=== PATIENT | male | born 1960 | race Caucasian/White ===

== ENCOUNTER 2018-05-13 19:18 | Day surgery (SDC) | payer BC ==
[~2018-05-13] VITALS: Ht 162.6 cm; Wt 77.3 kg
[2018-05-13] MEDS ORDERED: ASPI81CH PO (19:28)
[2018-05-13] MEDS ORDERED: PRAV40TA2 (19:28)
[2018-05-13] MEDS ORDERED: GLUCAGON FOR INJ 1 MG VIAL (J1610) IV STA (19:46)
[2018-05-13] MEDS ORDERED: NS 1,000 ML IV SCH (19:46)
[2018-05-13 20:12] LABS: BASO % 0.5 % (0.0-1.0); EOS # 0.1 10^3/uL (0.0-0.50); EOS % 1.2 % (0.0-3.0); HEMATOCRIT 45.4 % (42.0-52.0); HEMOGLOBIN 15.4 g/dl (13.5-17.5); LYMPH # 1.8 10^3/uL (1.5-4.5); LYMPH % 29.4 % (24.0-44.0); MEAN CORPUSCULAR HEMOGLOBIN 31.7 pg (27.0-33.0); MEAN CORPUSCULAR HGB CONC 33.9 g/dl (32.0-36.5); MEAN CORPUSCULAR VOLUME 93.4 fl (80.0-96.0); MONO # 0.5 10^3/uL (0.0-0.8); MONO % 8.2 % (0.0-5.0); NEUTROPHILS # 3.6 10^3/uL (1.8-7.7); NEUTROPHILS % 60.4 % (36.0-66.0); PLATELET COUNT, AUTOMATED 215 10^3/uL (150-450); RED BLOOD COUNT 4.86 10^6/uL (4.30-6.10)
[2018-05-13 20:35] LABS: CALCIUM LEVEL 8.9 MG/DL (8.5-10.1); CREATININE FOR GFR 1.4 MG/DL (0.70-1.30); GLOMERULAR FILTRATION RATE 55.4 (>56); POTASSIUM SERUM 3.8 MEQ/L (3.5-5.1)
[2018-05-13] MEDS ORDERED: COEN100T PO (21:15)
[2018-05-13] MEDS ORDERED: VITMTA PO (21:15)
[2018-05-13] MEDS ORDERED: FLAX100012 PO (21:15)
[2018-05-13] MEDS ORDERED: GLUCTAB6 PO (21:15)
[2018-05-13] MEDS ORDERED: PRAV40TA2 PO (21:15)
[2018-05-13] MEDS ORDERED: ASPI81TAEC PO (21:15)
[2018-05-13] MEDS ORDERED: PROPOFOL 200 MG/20 ML VIAL As Ordered ONE (21:42)
[2018-05-13] MEDS ORDERED: LIDOCAINE 2% INJ 100 MG/5 ML SDV (FOR ANES.) As Ordered ONE (21:42)
[2018-05-13] MEDS ORDERED: ROCURONIUM BROMIDE 50 MG/5 ML VIAL As Ordered ONE (21:42)
[2018-05-13] MEDS ORDERED: MIDAZOLAM INJ 2 MG/2 ML VIAL (J2250) As Ordered ONE (21:43)
[2018-05-13] MEDS ORDERED: fentaNYL 100 MCG/2 ML INJECTION (J3010) As Ordered ONE ×2 (21:43→22:58)
--- NOTE | 2018-05-13 22:16 | CR.PDOC ---
General Date of Consultation: May 13, 2018 Referring Provider: AMRIK KING MD Attending Physician: CHRISTOPHER KABA MD Consultation Primary physician/ hospitalist: Dr. Vern Crane Reason for consult: Food Impaction. HPI: 57 year old male patient with HLD ( on atorvastatin), presented to ER for complaints of food getting stuck in the chest. GI consulted for the same. Patient reports he was eating fried rib and after his second bite he felt that the food is stuck in the chest area. Patient is unable to swallow any thing after that, he tried drinking water, estrellita génesis but it did not help and he is also spitting/ vomiting saliva. Patient also reports prior episodes of much less intense episodes of difficulty swallowing food in past but denies having heart burn or acid reflux in past. Pertinent negative GI symptoms: Patient denies diarrhea, loss of appetite, early satiety or unintentional weight loss. No history of hematemesis, melena or hematochezia. Patient reports regular bowel movements. Review of Systems: GI: as stated above CVS: No chest pain, No palpitations, No leg swelling. RS: No Shortness of breath, No Wheezing, no cough REGIONAL TRAINER: No dizziness, No motor weakness, No sensory problems Hematology: No bruising, No gum bleeding, Musculoskeletal: No joint pain, ambulating well. Skin: No rash : No hematuria, No burning sensation of the urine ENT: No ear discharge/ pain, No dysphagia. Eyes: No photophobia. Home medications: reviewed. Antithrombotic agents - none Medical h/o: As above. Surgical h/o: None on abdomen. Social h/o: Alcohol social , smoking in past but quit. , IVDA/ drugs denies. Family h/o of GI cancers - None Prior Endoscopies: None in [facility] Prior GI evaluation: None in [facility] Exam: Vitals: reviewed General: Alert and oriented x 3, Moderate distress from impacted food and unable to swallow his own saliva. HEENT: NO pallor, no icterus. Normal oropharynx, NO cervical lymph nodes. Chest: symmetric with bilateral clear air entry, CVS: S1, S2 heard, normal, no murmurs . Abdomen: non-distended, no surgical scars, soft, non-tender, no palpable masses, normal bowel sounds heard. Extremities: no pedal edema, pulses palpable. REGIONAL TRAINER: no focal motor or sensory deficits. Moves all extremities Skin: no rash. Labs: reviewed.. Imaging: Non in this admission. Impression: -- Food impaction with prior episodes of dysphagia DDx- Impacted food likely from Esinophilic esophagitis vs Esophagitis from reflux ( subclinical) vs Less likely stricture. Recommendations: - Patient educated about the test results, possible differential diagnoses and All questions answered. - NPO for planned EGD. - IV hydration with ringers lactate. - Continue pulse oximetry and monitoring of vitals. - Patient is scheduled for Urgent EGD for foreign body removal. The procedures, indications, risks (bleeding, perforation, infection, hypotension, respiratory depression, allergy, need for endotracheal intubation, surgery, cardiac arrest, even ), benefits, limitations (failed procedure), and all other alternatives (including no intervention) were explained to the patient who understood and agreed for the procedures. Plan of care discussed with patient and primary team. Patient verbalized understanding and agreed with the plan. Post procedure recommendations as per the Operative note. Allergies Coded Allergies: No Known Allergies (Unverified , 05/13/18) Home Medications Scheduled (Glucosamine Chondroitin) 1 Tab Tab, 1 TAB PO QHS, (Reported) Aspirin (Aspirin EC) 81 Mg Tabec, 81 MG PO QHS, (Reported) Coenzyme Q10 (Coenzyme Q10) 100 Mg Tab, 100 MG PO QHS, (Reported) Linseed Oil (Flax Seed Oil) 1,000 Mg Cap, 1,000 MG PO QHS, (Reported) Multivitamins *SMC STOCKED* (Thera M Plus *SMC STOCKED*) 1 Tab Tab, 1 TAB PO QHS, (Reported) Pravastatin Sod (Pravastatin Sodium) 40 Mg Tab, 40 MG PO Q2D, (Reported) EVERY OTHER NIGHT OPPOSITE OF 20MG DOSE Pravastatin Sod (Pravastatin Sodium) 40 Mg Tab, 20 MG PO Q2D, (Reported) EVERY OTHER NIGHT OPPOSITE OF 40MG DOSE CHRISTOPHER KABA MD May 13, 2018 22:16
[2018-05-13] MEDS ORDERED: SUCCINYLCHOLINE 100 MG/5 ML SYRINGE (J0330) As Ordered ONE (22:38)
[2018-05-13] MEDS ORDERED: METOCLOPRAMIDE INJ 10MG/2ML VIAL (J2765) As Ordered ONE (22:40)
[2018-05-13] MEDS ORDERED: ONDANSETRON 4MG/2ML VIAL (J2405) As Ordered ONE (22:40)
[2018-05-13] MEDS ORDERED: dexameTHASONE 4 MG/ML 1ML VIAL (J1100) As Ordered ONE (22:40)
[2018-05-13] MEDS ORDERED: GLYCOPYRROLATE INJ 0.2 MG/ML 2 ML VIAL As Ordered ONE ×2 (23:11→23:12)
[2018-05-13] MEDS ORDERED: NEOSTIGMINE 10 MG/10 ML VIAL (J2710) As Ordered ONE (23:11)
[2018-05-13] MEDS ORDERED: ePHEDrine SULFATE 25 MG/5 ML(5MG/ML) SYRINGE As Ordered ONE (23:20)
--- NOTE | 2018-05-13 23:26 | ROOR ---
Patient Name: Vern Wise Procedure Date: 05/13/2018 9:47 PM Date of : 1960 Age: 57 Room: Main OR Gender: Male Note Status: Finalized Procedure: Upper GI endoscopy Indications: Foreign body in the esophagus Providers: Malcom Dias MD Referring MD: Danilo Hussein MD Requesting Provider: Medicines: Monitored Anesthesia Care Complications: No immediate complications. Procedure: Pre-Anesthesia Assessment: - Prior to the procedure, a History and Physical was performed, and patient medications and allergies were reviewed. The patient is competent. The risks and benefits of the procedure and the sedation options and risks were discussed with the patient. All questions were answered and informed consent was obtained. Patient identification and proposed procedure were verified by the physician, the nurse and the anesthesiologist in the procedure room. Mental Status Examination: alert and oriented. Airway Examination: normal oropharyngeal airway and neck mobility. Respiratory Examination: clear to auscultation. CV Examination: normal. Prophylactic Antibiotics: The patient does not require prophylactic antibiotics. Prior Anticoagulants: The patient has taken no previous anticoagulant or antiplatelet agents. ASA Grade Assessment: III - A patient with severe systemic disease. After reviewing the risks and benefits, the patient was deemed in satisfactory condition to undergo the procedure. The anesthesia plan was to use monitored anesthesia care (MAC). Immediately prior to administration of medications, the patient was re-assessed for adequacy to receive sedatives. The heart rate, respiratory rate, oxygen saturations, blood pressure, adequacy of pulmonary ventilation, and response to care were monitored throughout the procedure. The physical status of the patient was re-assessed after the procedure. The Endoscope was introduced through the mouth, and advanced to the second part of duodenum. The patient tolerated the procedure well. The upper GI endoscopy was accomplished without difficulty. Findings: Food was found in the lower third of the esophagus. Removal of food was accomplished. LA Grade C (one or more mucosal breaks continuous between tops of 2 or more mucosal folds, less than 75% circumference) esophagitis with no bleeding was found in the distal esophagus. Striped severely erythematous mucosa without bleeding was found in the gastric antrum. The duodenal bulb and second portion of the duodenum were normal. Impression: - Food in the lower third of the esophagus. Removal was successful. - LA Grade C reflux and erosive esophagitis. - Erythematous mucosa in the antrum. - Normal duodenal bulb and second portion of the duodenum. Recommendation: - Patient has a contact number available for emergencies. The signs and symptoms of potential delayed complications were discussed with the patient. Return to normal activities tomorrow. Written discharge instructions were provided to the patient. - Full liquid diet for 2 days, then advance as tolerated to chopped diet. - Use Protonix (pantoprazole) 40 mg PO twice daily - to be taken in morning (1/2 hour before breakfast) and at bedtime ( atleast 3 hours after last meal) for 12 weeks. - Follow an antireflux regimen. - Repeat upper endoscopy in 3 months to check healing. - Return to GI clinic in [facility] (address [address], [address], [place] [address]) in 4 -- 6 weeks. Please call GI clinic @ [phone] for apppointment date and time. - Return to primary care physician. Malcom Dias MD Malcom Dias MD 05/13/2018 11:25:57 PM This report has been signed electronically. Number of Addenda: 0 Note Initiated On: 05/13/2018 9:47 PM Estimated Blood Loss: Estimated blood loss was minimal.
[2018-05-13] MEDS ORDERED: PANTOPRAZOLE 40MG INJ (PROTONIX) (C9113) IV ONE (23:45)
[2018-05-13] MEDS ORDERED: fentaNYL 100 MCG/2 ML INJECTION (J3010) IV PRN (23:45)
[2018-05-13] MEDS ORDERED: ONDANSETRON 4MG/2ML VIAL (J2405) IV PRN (23:45)
[2018-05-13] MEDS ORDERED: PERCOCET 5MG/325MG TAB PO PRN (23:45)
[2018-05-13] MEDS ORDERED: LR 1,000 ML IV SCH (23:45)
[2018-05-14] VITALS: BP 144/76
[2018-05-14 00:30] VITALS: BP 127/69
[2018-05-14 01:30] VITALS: BP 112/64
== END 2018-05-14 01:30 | disposition home or self-care (01) ==
LOC: M ED 19:18 → M SDC 21:20 → M PED 05-14 00:10 → M SDC 05-14 01:30
PROVIDERS: ATTEND Internal Medicine Gastroenterology
DX: T18.128A Food in esophagus causing other injury, initial encounter (principal); K21.0 Gastro-esophageal reflux disease with esophagitis; E78.5 Hyperlipidemia, unspecified; X58.XXXA Exposure to other specified factors, initial encounter; Y93.89 Activity, other specified; Y92.89 Other specified places as the place of occurrence of the external cause; Y99.8 Other external cause status
CPT/HCPCS: 43247; 80048; 85025; 99284; C9113; J0330; J1100; J1610; J2250; J2405; J2710; J2765; J3010

== ENCOUNTER 2018-08-07 08:04 | Day surgery (SDC) | payer BC ==
[~2018-08-07] VITALS: Ht 165.1 cm; Wt 78.5 kg
[~2018-08-07 08:04] MED LIST: ASPI81CH49 PO; ASPI81TAEC PO; COEN100T PO; FLAX100012 PO; GLUCTAB6 PO; NS 1,000 ML IV ONE; PANT40TA3 PO; PRAV40TA2; PRAV40TA2 PO; PROPOFOL 500 MG/50 ML VIAL As Ordered ONE; VITMTA PO
--- NOTE | 2018-08-07 10:45 | ROOR ---
Patient Name: Vern Wise Procedure Date: 08/07/2018 9:58 AM Date of : 1960 Age: 57 Room: [facility] Gender: Male Note Status: Finalized Procedure: Upper GI endoscopy Indications: Dysphagia, Follow-up of esophagitis Providers: Malcom Dias MD Referring MD: ABHAY ALDANA DO Requesting Provider: Medicines: Monitored Anesthesia Care Complications: No immediate complications. Procedure: Pre-Anesthesia Assessment: - Prior to the procedure, a History and Physical was performed, and patient medications and allergies were reviewed. The patient is competent. The risks and benefits of the procedure and the sedation options and risks were discussed with the patient. All questions were answered and informed consent was obtained. Patient identification and proposed procedure were verified by the physician, the nurse and the anesthesiologist in the procedure room. Mental Status Examination: alert and oriented. Airway Examination: normal oropharyngeal airway and neck mobility. Respiratory Examination: clear to auscultation. CV Examination: normal. Prophylactic Antibiotics: The patient does not require prophylactic antibiotics. Prior Anticoagulants: The patient has taken no previous anticoagulant or antiplatelet agents. ASA Grade Assessment: II - A patient with mild systemic disease. After reviewing the risks and benefits, the patient was deemed in satisfactory condition to undergo the procedure. The anesthesia plan was to use monitored anesthesia care (MAC). Immediately prior to administration of medications, the patient was re-assessed for adequacy to receive sedatives. The heart rate, respiratory rate, oxygen saturations, blood pressure, adequacy of pulmonary ventilation, and response to care were monitored throughout the procedure. The physical status of the patient was re-assessed after the procedure. The Endoscope was introduced through the mouth, and advanced to the second part of duodenum. The upper GI endoscopy was accomplished without difficulty. The patient tolerated the procedure well. Findings: The Z-line was irregular and was found 41 cm from the incisors. No endoscopic abnormality was evident in the esophagus to explain the patient's complaint of dysphagia. Biopsies were obtained from the proximal and distal esophagus with cold forceps for histology of suspected eosinophilic esophagitis. Verification of patient identification for the specimen was done by the physician and nurse using the patient's name, date and medical record number. Estimated blood loss was minimal. Patchy moderate inflammation characterized by erosions, erythema, friability and granularity was found in the gastric fundus, in the gastric body and in the gastric antrum. Biopsies were taken with a cold forceps for Helicobacter pylori testing. The duodenal bulb and second portion of the duodenum were normal. Impression: - Z-line irregular, 41 cm from the incisors. - No endoscopic esophageal abnormality to explain patient's dysphagia. Biopsied. - Gastritis. Biopsied. - Normal duodenal bulb and second portion of the duodenum. Recommendation: - Patient has a contact number available for emergencies. The signs and symptoms of potential delayed complications were discussed with the patient. Return to normal activities tomorrow. Written discharge instructions were provided to the patient. - High fiber diet. - Continue present medications. - Await pathology results. - Based on the biopsy results you will receive a phone call from GI clinic in 2-3 weeks to review the pathology results AND/OR your results will be faxed to your Primary care physician. - Return to primary care physician. Malcom Dias MD Malcom Dias MD 08/07/2018 10:45:00 AM Electronically signed by Malcom Dias MD Number of Addenda: 0 Note Initiated On: 08/07/2018 9:58 AM Estimated Blood Loss: Estimated blood loss was minimal.
--- NOTE | 2018-08-07 10:49 | ROOR ---
Patient Name: Vern Wise Procedure Date: 08/07/2018 10:02 AM Date of : 1960 Age: 57 Gender: Male Note Status: Finalized Procedure: Colonoscopy Indications: High risk colon cancer surveillance: Personal history of colonic polyps Providers: Malcom Dias MD Referring MD: ABHAY ALDANA DO Requesting Provider: Medicines: Monitored Anesthesia Care Complications: No immediate complications. Procedure: Pre-Anesthesia Assessment: - Prior to the procedure, a History and Physical was performed, and patient medications and allergies were reviewed. The patient is competent. The risks and benefits of the procedure and the sedation options and risks were discussed with the patient. All questions were answered and informed consent was obtained. Patient identification and proposed procedure were verified by the physician, the nurse and the anesthesiologist in the procedure room. Mental Status Examination: alert and oriented. Airway Examination: normal oropharyngeal airway and neck mobility. Respiratory Examination: clear to auscultation. CV Examination: normal. Prophylactic Antibiotics: The patient does not require prophylactic antibiotics. Prior Anticoagulants: The patient has taken no previous anticoagulant or antiplatelet agents. ASA Grade Assessment: II - A patient with mild systemic disease. After reviewing the risks and benefits, the patient was deemed in satisfactory condition to undergo the procedure. The anesthesia plan was to use monitored anesthesia care (MAC). Immediately prior to administration of medications, the patient was re-assessed for adequacy to receive sedatives. The heart rate, respiratory rate, oxygen saturations, blood pressure, adequacy of pulmonary ventilation, and response to care were monitored throughout the procedure. The physical status of the patient was re-assessed after the procedure. The Colonoscope was introduced through the anus and advanced to the terminal ileum, with identification of the appendiceal orifice and IC valve. The colonoscopy was performed without difficulty. The patient tolerated the procedure well. Findings: The perianal and digital rectal examinations were normal. The terminal ileum appeared normal. A 6 mm polyp was found in the transverse colon. The polyp was sessile. The polyp was removed with a cold snare. Resection and retrieval were complete. Verification of patient identification for the specimen was done by the physician and nurse using the patient's name, date and medical record number. Estimated blood loss was minimal. Multiple small and large-mouthed diverticula were found from sigmoid to descending colon. There was no evidence of diverticular bleeding. Non-bleeding external and internal hemorrhoids were found during retroflexion. The hemorrhoids were medium-sized. Impression: - The examined portion of the ileum was normal. - One 6 mm polyp in the transverse colon, removed with a cold snare. Resected and retrieved. - Moderate diverticulosis from sigmoid to descending colon. There was no evidence of diverticular bleeding. - Non-bleeding external and internal hemorrhoids. Recommendation: - Patient has a contact number available for emergencies. The signs and symptoms of potential delayed complications were discussed with the patient. Return to normal activities tomorrow. Written discharge instructions were provided to the patient. - High fiber diet. - Continue present medications. - Await pathology results. - Repeat colonoscopy in 5 years for surveillance based on pathology results. - Based on the biopsy results you will receive a phone call from GI clinic in 2-3 weeks to review the pathology results AND/OR your results will be faxed to your Primary care physician. - Return to primary care physician. Malcom Dias MD Malcom Dias MD 08/07/2018 10:48:56 AM Electronically signed by Malcom Dias MD Number of Addenda: 0 Note Initiated On: 08/07/2018 10:02 AM Estimated Blood Loss: Estimated blood loss was minimal.
[2018-08-07 11:11] VITALS: BP 128/84
[2018-08-07] MEDS ORDERED: LIDOCAINE 2% INJ 100 MG/5 ML SDV (FOR ANES.) As Ordered ONE (11:14)
== END 2018-08-07 11:31 | disposition home or self-care (01) ==
LOC: M OPP 08:04
PROVIDERS: ATTEND Internal Medicine Gastroenterology
DX: D12.3 Benign neoplasm of transverse colon (principal); K57.30 Diverticulosis of large intestine without perforation or abscess without bleeding; K64.8 Other hemorrhoids; Z86.010 Personal history of colon polyps; K22.8 Other specified diseases of esophagus; K29.70 Gastritis, unspecified, without bleeding; R13.10 Dysphagia, unspecified

== ENCOUNTER → 2019-02-23 | Outpatient (CLI) | payer BC ==
[~2019-02-23] MED LIST changes: -NS 1,000 ML IV ONE; -PROPOFOL 500 MG/50 ML VIAL As Ordered ONE
[2019-02-23 12:59] LABS: BASO % 0.5 % (0.0-1.0); EOS # 0.1 10^3/uL (0.0-0.5); EOS % 0.9 % (0.0-3.0); HEMATOCRIT 44.3 % (42.0-52.0); HEMOGLOBIN 14.8 g/dl (13.5-17.5); LYMPH # 1.3 10^3/uL (1.5-5.0); LYMPH % 23.6 % (24.0-44.0); MEAN CORPUSCULAR HGB CONC 33.4 g/dl (32.0-36.5); MEAN CORPUSCULAR VOLUME 95.9 fl (80.0-96.0); MONO # 0.3 10^3/uL (0.0-0.8); NEUTROPHILS # 3.8 10^3/uL (1.5-8.5); NEUTROPHILS % 68.8 % (36.0-66.0); PLATELET COUNT, AUTOMATED 211 10^3/uL (150-450); RED BLOOD COUNT 4.62 10^6/uL (4.30-6.10); WHITE BLOOD COUNT 5.5 10^3/uL (4.0-10.0)
[2019-02-23 13:25] LABS: BLOOD UREA NITROGEN 29 MG/DL (7-18); CALCIUM LEVEL 9.2 MG/DL (8.5-10.1); CARBON DIOXIDE LEVEL 30 MEQ/L (21-32); CHLORIDE LEVEL 106 MEQ/L (98-107); CREATININE FOR GFR 1.14 MG/DL (0.70-1.30); GLOMERULAR FILTRATION RATE > 60.0 (>56); GLUCOSE, FASTING 126 MG/DL (70-100); POTASSIUM SERUM 4.4 MEQ/L (3.5-5.1); SODIUM LEVEL 140 MEQ/L (136-145)
== END ==
LOC: M WUC 10:22
PROVIDERS: ATTEND Internal Medicine Cardiovascular Disease
DX: R07.9 Chest pain, unspecified (principal); I25.10 Atherosclerotic heart disease of native coronary artery without angina pectoris; R94.30 Abnormal result of cardiovascular function study, unspecified

== ENCOUNTER 2023-03-12 10:55 | Day surgery (SDC) | payer OTHER ==
[~2023-03-12] VITALS: Ht 162.6 cm; Wt 87.1 kg
[~2023-03-12 10:55] MED LIST changes: +ASPI-569 PO; -ASPI81TAEC PO; +FAMO20TA PO; -GLUCTAB6 PO; +GLUCTAB7 PO; +LIDOCAINE 2% W/EPINEPHRINE 20ML VIAL **PRES FREE As Ordered ONE; +LIDOCAINE 3.5 % 1ML OPHTH TOPICAL GEL OU ONE; +MIDAZOLAM INJ 2MG/2ML VIAL As Ordered ONE; +PANT40TA29 PO; -PANT40TA3 PO; +ROSU20TA61 PO; +TOBRADEX OPHTH OINT 3.5 GM As Ordered ONE; +fentaNYL 100 MCG/2 ML INJECTION As Ordered ONE
[2023-03-12] MEDS ORDERED: POVIDONE-IODINE 5% OPHTH PREP SOL 30ML As Ordered ONE (11:40)
[2023-03-12 12:54] VITALS: BP 130/86; TEMP 97.2; O2SAT 97
== END 2023-03-12 12:58 | disposition home or self-care (01) ==
LOC: M SDC 10:55
PROVIDERS: ATTEND Ophthalmology
DX: H11.442 Conjunctival cysts, left eye (principal); K21.9 Gastro-esophageal reflux disease without esophagitis; R51.9 Headache, unspecified; Z79.899 Other long term (current) drug therapy; E78.5 Hyperlipidemia, unspecified; Z87.891 Personal history of nicotine dependence
CPT/HCPCS: 68110; 88305; J2250; J3010